=== PATIENT | male | born 1950 | race Caucasian/White ===

== ENCOUNTER → 2020-03-18 | Outpatient (REF) | payer MEDICARE, OTHER | LOC: M LAB REF 17:33 | PROVIDERS: ATTEND Physician Assistant | DX: C43.59 Malignant melanoma of other part of trunk (principal); L82.1 Other seborrheic keratosis; L57.0 Actinic keratosis | CPT/HCPCS: 11102; 17000; 17003; 88305; G0463 ==

== ENCOUNTER → 2023-03-04 | Outpatient (CLI) | payer MEDICARE, OTHER | LOC: M WUC 15:49 | PROVIDERS: ATTEND Physician Assistant | DX: M17.11 Unilateral primary osteoarthritis, right knee (principal) ==

== ENCOUNTER → 2023-05-16 | Outpatient (CLI) | payer MEDICARE, OTHER ==
[~2023-05-16] MED LIST: ACET650T15 PO; MELO15TA28; VITA100066 PO
== END ==
LOC: M WUC 08:25
DX: C43.9 Malignant melanoma of skin, unspecified (principal)

== ENCOUNTER → 2023-05-23 | Outpatient (CLI) | payer MEDICARE, OTHER | LOC: M WUC 08:27 | DX: C43.9 Malignant melanoma of skin, unspecified (principal) ==

== ENCOUNTER → 2023-05-30 | Outpatient (REF) | payer MEDICARE, OTHER | LOC: M LABWUC 16:13 | PROVIDERS: ATTEND Internal Medicine | DX: C43.9 Malignant melanoma of skin, unspecified (principal) ==

== ENCOUNTER → 2023-06-12 | Outpatient (CLI) | payer MEDICARE, OTHER | LOC: M WUC 09:30 | PROVIDERS: ATTEND Internal Medicine | DX: C43.9 Malignant melanoma of skin, unspecified (principal) ==

== ENCOUNTER → 2023-06-21 | Outpatient (CLI) | payer MEDICARE, OTHER ==
[2023-06-21 12:42] LABS: BASO # 0.1 10^3/uL (0.0-0.2); BASO % 0.4 % (0.0-1.0); EOS # 0.3 10^3/uL (0.0-0.5); EOS % 2.6 % (0.0-3.0); HEMATOCRIT 46.6 % (42.0-52.0); HEMOGLOBIN 15.1 g/dl (13.5-17.5); LYMPH # 8.8 10^3/uL (1.5-5.0); LYMPH % 70.2 % (24.0-44.0); MEAN CORPUSCULAR HEMOGLOBIN 31.3 pg (27.0-33.0); MEAN CORPUSCULAR HGB CONC 32.4 g/dl (32.0-36.5); MEAN CORPUSCULAR VOLUME 96.5 fl (80.0-96.0); MONO # 0.3 10^3/uL (0.0-0.8); MONO % 2.5 % (2.0-8.0); NEUTROPHILS % 24.1 % (36.0-66.0); PLATELET COUNT, AUTOMATED 153 10^3/uL (150-450); RED BLOOD COUNT 4.83 10^6/uL (4.30-6.10); WHITE BLOOD COUNT 12.6 10^3/uL (4.0-10.0)
[2023-06-21 12:49] LABS: ALBUMIN 4.1 G/DL (3.2-5.2)
[2023-06-21 12:56] LABS: PERCENT SATURATION 25.9 % (19.7-50.0)
[2023-06-21 12:58] LABS: FERRITIN 83.3 NG/ML (10.5-307.3)
== END ==
LOC: M WUC 08:50
PROVIDERS: ATTEND Orthopaedic Surgery
DX: Z01.812 Encounter for preprocedural laboratory examination (principal); M17.11 Unilateral primary osteoarthritis, right knee; Z79.899 Other long term (current) drug therapy; M25.561 Pain in right knee

== ENCOUNTER → 2023-07-09 | Outpatient (CLI) | payer MEDICARE, OTHER ==
[2023-07-09 16:39] LABS: BASO # 0.1 10^3/uL (0.0-0.2); BASO % 0.5 % (0.0-1.0); EOS # 0.3 10^3/uL (0.0-0.5); HEMATOCRIT 48.8 % (42.0-52.0); HEMOGLOBIN 15.5 g/dl (13.5-17.5); LYMPH # 8.4 10^3/uL (1.5-5.0); LYMPH % 65.1 % (24.0-44.0); MEAN CORPUSCULAR HEMOGLOBIN 30.6 pg (27.0-33.0); MEAN CORPUSCULAR HGB CONC 31.8 g/dl (32.0-36.5); MEAN CORPUSCULAR VOLUME 96.4 fl (80.0-96.0); MONO # 0.3 10^3/uL (0.0-0.8); MONO % 2.3 % (2.0-8.0); NEUTROPHILS # 3.9 10^3/uL (1.5-8.5); NEUTROPHILS % 29.9 % (36.0-66.0); PLATELET COUNT, AUTOMATED 146 10^3/uL (150-450); RED BLOOD COUNT 5.06 10^6/uL (4.30-6.10); WHITE BLOOD COUNT 12.9 10^3/uL (4.0-10.0)
[2023-07-09 16:48] LABS: ALBUMIN 4.3 G/DL (3.2-5.2); ALKALINE PHOSPHATASE 71 U/L (46-116); ALT/SGPT 21 U/L (7.0-40); AST/SGOT 13 U/L (<34); BILIRUBIN,TOTAL 0.6 MG/DL (0.3-1.2); BLOOD UREA NITROGEN 24 MG/DL (9-23); CALCIUM LEVEL 9.5 MG/DL (8.3-10.6); CARBON DIOXIDE LEVEL 29 MMOL/L (20-31); CHLORIDE LEVEL 109 MMOL/L (98-107); CREATININE FOR GFR 0.98 MG/DL (0.70-1.30); GLOMERULAR FILTRATION RATE > 60.0 (>42); GLUCOSE, FASTING 85 MG/DL (74-106); POTASSIUM SERUM 4.3 MMOL/L (3.5-5.1); SODIUM LEVEL 144 MMOL/L (136-145); TOTAL PROTEIN 7.2 G/DL (5.7-8.2)
[2023-07-09 16:55] LABS: INR 1.01
== END ==
LOC: M WUC 10:34
PROVIDERS: ATTEND Orthopaedic Surgery
DX: M17.11 Unilateral primary osteoarthritis, right knee (principal)

== ENCOUNTER → 2023-07-10 | Outpatient (REF) | payer MEDICARE, OTHER | LOC: M LAB REF 10:47 | PROVIDERS: ATTEND Orthopaedic Surgery | DX: M17.11 Unilateral primary osteoarthritis, right knee (principal); Z79.01 Long term (current) use of anticoagulants ==

== ENCOUNTER → 2023-08-08 | Outpatient (REF) | payer MEDICARE, OTHER ==
[2023-08-08 13:27] LABS: ALBUMIN 3.9 G/DL (3.2-5.2); ALKALINE PHOSPHATASE 76 U/L (46-116); ALT/SGPT 20 U/L (7.0-40); AST/SGOT 14 U/L (<34); BILIRUBIN,TOTAL 0.9 MG/DL (0.3-1.2); BLOOD UREA NITROGEN 21 MG/DL (9-23); CALCIUM LEVEL 9.1 MG/DL (8.3-10.6); CARBON DIOXIDE LEVEL 29 MMOL/L (20-31); CHLORIDE LEVEL 105 MMOL/L (98-107); CREATININE FOR GFR 0.94 MG/DL (0.70-1.30); GLOMERULAR FILTRATION RATE > 60.0 (>42); GLUCOSE, FASTING 89 MG/DL (74-106); POTASSIUM SERUM 4.6 MMOL/L (3.5-5.1); SODIUM LEVEL 138 MMOL/L (136-145); TOTAL PROTEIN 6.5 G/DL (5.7-8.2)
== END ==
LOC: M LABWUC 12:18
PROVIDERS: ATTEND Internal Medicine
DX: R79.89 Other specified abnormal findings of blood chemistry (principal)

== ENCOUNTER → 2024-02-14 | Outpatient (CLI) | payer MEDICARE, OTHER ==
[~2024-02-14] MED LIST changes: +IBUP-351 PO; +LEVO25TA5 PO; +LEVO50TA5 PO; +LEVO75TA4 PO; +LISI10TA22 PO; +NAPR220C14 PO; +[UNRECOGNIZED DRUG - CODE] PO
[2024-02-14 09:21] LABS: BASO # 0.1 10^3/uL (0.0-0.2); BASO % 0.4 % (0.0-1.0); EOS # 0.3 10^3/uL (0.0-0.5); EOS % 2.1 % (0.0-3.0); HEMATOCRIT 45.8 % (42.0-52.0); LYMPH # 9.5 10^3/uL (1.5-5.0); LYMPH % 70.9 % (24.0-44.0); MEAN CORPUSCULAR HEMOGLOBIN 31.3 pg (27.0-33.0); MEAN CORPUSCULAR HGB CONC 32.8 g/dl (32.0-36.5); MEAN CORPUSCULAR VOLUME 95.4 fl (80.0-96.0); MONO # 0.3 10^3/uL (0.0-0.8); MONO % 2.1 % (2.0-8.0); NEUTROPHILS # 3.2 10^3/uL (1.5-8.5); NEUTROPHILS % 24.3 % (36.0-66.0); PLATELET COUNT, AUTOMATED 147 10^3/uL (150-450); WHITE BLOOD COUNT 13.4 10^3/uL (4.0-10.0)
[2024-02-14 09:45] LABS: ALBUMIN 4.4 G/DL (3.2-5.2); BILIRUBIN,TOTAL 0.8 MG/DL (0.3-1.2); CALCIUM LEVEL 9.7 MG/DL (8.3-10.6); CREATININE FOR GFR 1.27 MG/DL (0.70-1.30); GLOMERULAR FILTRATION RATE 59.2 (>42); POTASSIUM SERUM 4.2 MMOL/L (3.5-5.1); TOTAL PROTEIN 7.1 G/DL (5.7-8.2)
[2024-02-14 09:47] LABS: FREE T4 0.72 NG/DL (0.89-1.76); THYROID STIMULATING HORMONE 30.677 uIU/ML (0.55-4.78)
[2024-02-14 09:49] LABS: FREE T3 1.9 PG/ML (2.3-4.2)
[2024-02-14 11:06] LABS: CORTISOL AM 18.8 UG/DL (4.3-22.4)
== END ==
LOC: M LAB 08:25
PROVIDERS: ATTEND Internal Medicine Medical Oncology
DX: C43.59 Malignant melanoma of other part of trunk (principal); Z79.899 Other long term (current) drug therapy

== ENCOUNTER → 2024-05-07 | Outpatient (CLI) | payer MEDICARE, OTHER ==
[~2024-05-07] MED LIST changes: +LEVO100T5; +SILD100T PO
[2024-05-07 09:38] LABS: PROSTATIC SPECIFIC AG MONITOR 1.54 NG/ML (< 4.00)
[2024-05-07 09:39] LABS: CHOLESTEROL RISK RATIO 4.3 (<5); HDL CHOLESTEROL 41.6 MG/DL (>40); LDL CHOLESTEROL 128.2 MG/DL (<100); NON-HDL-C 137.4 MG/DL
[2024-05-07 09:42] LABS: THYROID STIMULATING HORMONE 11.073 uIU/ML (0.55-4.78)
== END ==
LOC: M LAB 08:17
PROVIDERS: ATTEND Physician Assistant
DX: E78.5 Hyperlipidemia, unspecified (principal); E03.9 Hypothyroidism, unspecified; Z12.5 Encounter for screening for malignant neoplasm of prostate; R35.1 Nocturia

== ENCOUNTER → 2024-06-04 | Outpatient (CLI) | payer MEDICARE, OTHER ==
[2024-06-04 10:38] LABS: BASO # 0.1 10^3/uL (0.0-0.2); BASO % 0.6 % (0.0-1.0); EOS # 0.3 10^3/uL (0.0-0.5); EOS % 2.9 % (0.0-3.0); HEMATOCRIT 42.4 % (42.0-52.0); HEMOGLOBIN 13.7 g/dl (13.5-17.5); LYMPH # 7.9 10^3/uL (1.5-5.0); LYMPH % 70.8 % (24.0-44.0); MEAN CORPUSCULAR HEMOGLOBIN 31.1 pg (27.0-33.0); MEAN CORPUSCULAR HGB CONC 32.3 g/dl (32.0-36.5); MEAN CORPUSCULAR VOLUME 96.4 fl (80.0-96.0); MONO # 0.3 10^3/uL (0.0-0.8); MONO % 2.6 % (2.0-8.0); NEUTROPHILS # 2.6 10^3/uL (1.5-8.5); NEUTROPHILS % 22.9 % (36.0-66.0); PLATELET COUNT, AUTOMATED 144 10^3/uL (150-450); WHITE BLOOD COUNT 11.2 10^3/uL (4.0-10.0)
[2024-06-04 10:44] LABS: ALBUMIN 4.1 G/DL (3.2-5.2); ALKALINE PHOSPHATASE 65 U/L (40-129); ALT/SGPT 24 U/L (7.0-40); AST/SGOT 17 U/L (<34); BILIRUBIN,TOTAL 0.7 MG/DL (0.3-1.2); BLOOD UREA NITROGEN 20 MG/DL (9-23); CALCIUM LEVEL 9.9 MG/DL (8.3-10.6); CARBON DIOXIDE LEVEL 30 MMOL/L (20-31); CHLORIDE LEVEL 106 MMOL/L (98-107); FREE T3 2.5 PG/ML (2.3-4.2); GLOMERULAR FILTRATION RATE > 60.0 (>42); GLUCOSE, FASTING 113 MG/DL (74-106); MAGNESIUM LEVEL 1.9 MG/DL (1.8-2.4); POTASSIUM SERUM 4.1 MMOL/L (3.5-5.1); SODIUM LEVEL 142 MMOL/L (136-145); THYROID STIMULATING HORMONE 15.644 uIU/ML (0.55-4.78); TOTAL PROTEIN 6.9 G/DL (5.7-8.2)
[2024-06-04 10:45] LABS: FREE T4 1.19 NG/DL (0.89-1.76)
== END ==
LOC: M WUC 08:22
PROVIDERS: ATTEND Internal Medicine Medical Oncology
DX: C43.59 Malignant melanoma of other part of trunk (principal); Z79.899 Other long term (current) drug therapy

== ENCOUNTER → 2024-08-14 | Outpatient (CLI) | payer MEDICARE, OTHER | LOC: M RAD 14:11 | PROVIDERS: ATTEND Physician Assistant | DX: R22.41 Localized swelling, mass and lump, right lower limb (principal) ==

== ENCOUNTER → 2025-05-15 | Outpatient (CLI) | payer MEDICARE, OTHER ==
[~2025-05-15] MED LIST changes: +ACET-1515 PO; -ACET650T15 PO
== END ==
LOC: M SLEEP 20:00
PROVIDERS: ATTEND Physician Assistant
DX: R06.83 Snoring (principal); R00.1 Bradycardia, unspecified